=== PATIENT | female | born 1940 | race Caucasian/White ===

== ENCOUNTER 2017-09-04 22:37 | Inpatient (IN) | payer OTHER, MEDICARE ==
[~2017-09-04] VITALS: Ht 167.6 cm; Wt 64.4 kg
--- NOTE | ~2017-09-04 | 2DMMODE ---
[facility] [address] [place] [address] 2 D/M-MODE ECHOCARDIOGRAM Name: SOCORRO RAY Room #: 206-P [facility] [place] [facility]#: [id number] Admission: 09/05/17 Attend Phys: Dolores Aguirre MD Discharge: 09/05/17 Date of : 42 Date of Service: 09/06/17 1052 Report #: [id number] THIS REPORT FOR: //name// APPROVED REPORT Study performed: 09/05/2017 08:13:38 EXAM: Comprehensive 2D, Doppler, and color-flow Echocardiogram Patient Location: Bedside Room #: 206 Status: on-call BSA: 1.73 HR: 69 bpm BP: 128/64 mmHg Rhythm: NSR Other Information Study Quality: Good Indications Syncope, chest pressure, short of breath. 2D Dimensions RVDd: 35.01 mm LVEF(%): 76.34 (>50%) IVSd: 10.90 (7-11mm) LVOT Diam: 19.77 (18-24mm) LVDd: 44.31 mm PWd: 11.30 (7-11mm) Ascending Ao: 29.35 (22-36mm) LVDs: 24.44 (25-40mm) Aortic Root: 30.85 mm Sanders's LVEF: 76.34 % Volumes Left Atrial Volume (Systole) Single Plane 4CH: 47.21 mL Single Plane 2CH: 45.92 mL LA ESV Index: 31.00 mL/m2 Aortic Valve AoV Peak Palmer.: 1.34 m/s AO Peak Gr.: 7.13 mmHg LVOT Max P.45 mmHg LVOT Max V: 0.93 m/s LANG Vmax: 2.13 cm2 Mitral Valve E/A Ratio: 1.2 MV Decel. Time: 181.87 ms [facility] [place] [address] 2 D/M-MODE ECHOCARDIOGRAM Name: SOCORRO RAY Room #: 206-P [facility] [place]R.#: [id number] Admission: 09/05/17 Attend Phys: Dolores Aguirre MD Discharge: 09/05/17 Date of : 42 Date of Service: 09/06/17 1052 Report #: [id number] MV E Max Palmer.: 1.11 m/s MV A Palmer.: 0.90 m/s MV PHT: 52.74 ms IVRT: 59.98 ms Pulmonary Valve PV Peak Palmer.: 0.77 m/s PV Peak Gr.: 2.36 mmHg Pulmonary Vein P Vein S: 0.78 m/s P Vein A: 0.32 m/s P Vein D: 0.37 m/s P Vein A Dur.: 138.4 msec P Vein S/D Ratio: 2.11 Tricuspid Valve TR Peak Palmer.: 2.53 m/s RAP Estimate: 5.00 mmHg TR Peak Gr.: 25.55 mmHg PA Pressure: 31.00 mmHg Left Ventricle The left ventricle is normal size. There is normal LV segmental wall motion. There is normal left ventricular wall thickness. Left ventricular systolic function is normal. LVEF is 55-60%. Moderate diastolic dysfunction is present (pseudonormal filling). Right Ventricle The right ventricle is normal size. The right ventricular systolic function is normal. Atria The left atrium size is normal. The right atrium size is normal. Aortic Valve Aortic valve is trileaflet. Trace aortic regurgitation. There is no aortic valvular stenosis. Mitral Valve Mitral valve leaflets are mildly thickened. There is mild mitral valve prolapse. Mild mitral regurgitation. Eccentric jet; difficult to fully assess. No evidence of mitral valve stenosis. Tricuspid Valve The tricuspid valve is normal in structure. Trace to mild tricuspid regurgitation. Estimated PAP is 30-35mmHg. [place] [address] 2 D/M-MODE ECHOCARDIOGRAM Name: SOCORRO RAY Room #: 206-P [facility] [place] .R.#: [id number] Admission: 09/05/17 Attend Phys: Dolores Aguirre MD Discharge: 09/05/17 Date of : 42 Date of Service: 09/06/17 1052 Report #: [id number] The pulmonary valve is normal in structure. Mild pulmonic regurgitation. Great Vessels The aortic root is normal in size. The ascending aorta is normal in size. IVC is normal in size and collapses >50% with inspiration. Pericardium There is no pericardial effusion. <Conclusion> The left ventricle is normal size. LVEF is 55-60%. Moderate diastolic dysfunction is present (pseudonormal filling). The right ventricle is normal size. The left atrium size is normal. The left atrium size is normal. Aortic valve is trileaflet. Trace aortic regurgitation. Mitral valve leaflets are mildly thickened. There is mild mitral valve prolapse. Mild mitral regurgitation. Eccentric jet; difficult to fully assess. Trace to mild tricuspid regurgitation. Estimated PAP is 30-35mmHg. The aortic root is normal in size. There is no pericardial effusion. <ELECTRONICALLY SIGNED> By: Chepe Manzano MD, FACC 09/06/17 [phone] Chepe Manzano MD, FACC /INF
--- NOTE | ~2017-09-04 | D ---
[facility] [place] [address] DISCHARGE SUMMARY Name: SOCORRO RAY Room #: 206-P [facility] M.R.#: [id number] Admission: 09/05/17 Attend Phys: Dolores Aguirre MD Discharge: 09/05/17 Date of : 42 Report #: [id number] THIS REPORT FOR: //name// CC: Dolores Manzano DATE OF SERVICE: 09/05/2017 HOSPITAL COURSE: The patient is a 76-year-old female, patient of Dr. Aguirre, who does have a history of a heart murmur. She was at the grandson's graduation, subsequently felt warm and had a syncopal event. Brought in by EMS. The strips they thought was reading atrial fibrillation, although I was able to review and I believe these were frequent PACs and sinus rhythm was maintained. She is in sinus rhythm here. She has been having some complaints of intermittent fatigue, although no definite anginal type symptoms. She does not have cardiac history. In any event, she has been ruled out. She is in sinus rhythm. She feels well. She has been under a lot of stress and had been eating and was warm, so I suspect this was more vasovagal. Her echo Doppler is essentially normal except for mitral valve prolapse and mild to moderate MR with mild pulmonary hypertension in the 40 range. The ejection fraction was normal. She takes only hydrochlorothiazide. There is some borderline hypertension and hypercholesterolemia. There have not been any other episodes of syncope prior to this. She was transferred from [facility] to here. She will be discharged on losartan because of the mitral valve prolapse and an attempt to prolong the life of this valve. For borderline hypertension I have added losartan HCT 50/12.5 stopped the 25 mg hydrochlorothiazide. Continue the simvastatin, calcium, vitamin D3, multivitamins and a baby aspirin. I do not have indication for anticoagulation at this point, I do not have documented atrial fibrillation. I am planning to place a 2-week monitor on her on Thursday. Then we will follow up this intermittent fatigue and chest pressure, heaviness issues with a stress echocardiographic exam in the next week or two. I will not make any other changes. She will call with any issues. She will follow up with Dr. Aguirre in addition. DISCHARGE DIAGNOSES: 1. Syncope. 1. Report of paroxysmal atrial fibrillation, although not documented. 2. Hypertension. 3. Hypercholesterolemia. 4. Mitral valve prolapse. 5. I should also note that carotid Doppler showed no plaquing. I believe there were some incidental findings of some thyroid nodules and we will defer that to Dr. Aguirre as an outpatient. Troponins are negative. Chemistry was normal. H and H were 14 and 41. [facility] [address] [place] [address] DISCHARGE SUMMARY Name: FLORSOCORRO Zo Room #: 206-P [facility] M.R.#: [id number] Admission: 09/05/17 Attend Phys: Dolores Aguirre MD Discharge: 09/05/17 Date of : 42 Report #: [id number] Thank you for asking me to assist in the care of this patient. By: [id number] Chepe Manzano MD, FACC /nt
--- NOTE | ~2017-09-04 | EKG ---
[address] [place] [address] ELECTROCARDIOGRAM REPORT Name: RAYSOCORRO Room #: 206-P [facility] IN .R.#: [id number] Admission: 09/05/17 Attend Phys: Dolores Aguirre MD Discharge: 09/05/17 Date of : 42 Report #: [id number] THIS REPORT FOR: //name// [facility] ED Test Date: 2017-09-04 Test Time: 22:47:43 Pat Name: SOCORRO RAY Department: Room: Gender: F [employer] Editor: carmen : 1940 Requested By: Ryann Eldridge Order Number: [id number] MD: Richard Rockwell Measurements Intervals [place] Rate: 75 P: 68 MA: 161 QRS: -45 QRSD: 92 T: 22 QT: 410 QTc: 458 Interpretive Statements Sinus rhythm Atrial premature complex Left anterior fascicular block Abnormal R-wave progression, late transition Left ventricular hypertrophy Compared to ECG 09/14/1999 16:56:25 Atrial premature complex(es) now present Left anterior fascicular block now present Electronically Signed On 09-07-2017 7:48:21 CDT by Richard Rockwell [email or web address] <ELECTRONICALLY SIGNED> By: Richard Rockwell MD, [facility] 09/07/17 0748 2247 Richard Rockwell MD, [facility] /EPI
[~2017-09-04 22:37] MED LIST: CALCIUM 600 +1 EAC1 PO; HYDROCHLOROTH; HYDROCHLOROTHIA25 M1 PO; SIMVASTATIN40 MG PO; THERA-M CAPLET1 EACH PO; TIZANIDINE HCL4 M1 PO; VITAMIN D-32000 UNIT PO
[2017-09-04 22:47] VITALS: BP 164/81
[2017-09-04] MEDS ORDERED: ASPIR 8181 MG PO (23:03)
[2017-09-04 23:07] LABS: ABSOLUTE NEUTROPHILS 6.5 thou/uL (1.4-8.2); BASOPHILS 0.3 % (0.0-2.0); EOSINOPHILS 0.2 % (0.0-3.0); HEMATOCRIT 41.7 % (37.0-47.0); HEMOGLOBIN 14.4 gm/dL (12.0-15.0); LYMPHOCYTES 20.6 % (24.0-44.0); MCH 31.2 pg (26.0-34.0); MCHC 34.5 g/dL (28.0-37.0); MCV 90.7 fL (80.0-100.0); MONOCYTES 7.6 % (1.0-8.0); PLATELET COUNT 175 thou/uL (150-400); POLYS 71.3 % (36.0-66.0); RDW 13.4 % (10.5-14.5); WBC 9.1 thou/uL (4.0-11.0)
[2017-09-04 23:23] LABS: ANION GAP 14 mmol/L (7-16); BUN 22 mg/dL (7-18); CALCIUM 9.4 mg/dL (8.5-10.1); CHLORIDE 94 mmol/L (98-107); CO2 24 mmol/L (21-32); CREATININE 1.1 mg/dL (0.6-1.0); GLUCOSE 103 mg/dL (74-106); POTASSIUM 3.1 mmol/L (3.5-5.1); SODIUM 132 mmol/L (136-145)
[2017-09-04 23:25] LABS: TROPONIN-I < 0.04 ng/mL (<0.06)
[2017-09-05] VITALS: BP 159/92
[2017-09-05 01:00] VITALS: BP 144/84
[2017-09-05 04:49] VITALS: BP 128/64
[2017-09-05 07:15] LABS: CALCIUM 8.9 mg/dL (8.5-10.1); CREATININE 0.9 mg/dL (0.6-1.0); POTASSIUM 3.6 mmol/L (3.5-5.1)
[2017-09-05 07:20] VITALS: BP 145/83
[2017-09-05] MEDS ORDERED: LOSARTAN-HCTZ1 EAC2 PO (09:51)
[2017-09-05 11:19] VITALS: BP 145/83
[2017-09-05 11:24] VITALS: BP 145/83
== END 2017-09-05 12:00 | disposition home or self-care (01) | DRG 312 ==
LOC: ER 22:37 → EROBS 09-05 00:12 → 2N 09-05 01:33
PROVIDERS: Emergency Medicine; Family Medicine
DX: R55 Syncope and collapse (principal); R07.9 Chest pain, unspecified; E87.6 Hypokalemia; I48.0 Paroxysmal atrial fibrillation; I34.0 Nonrheumatic mitral (valve) insufficiency; I27.20 Pulmonary hypertension, unspecified; I10 Essential (primary) hypertension; E78.00 Pure hypercholesterolemia, unspecified; Z79.899 Other long term (current) drug therapy; Z82.49 Family history of ischemic heart disease and other diseases of the circulatory system
CPT/HCPCS: 10081

== ENCOUNTER → 2019-10-31 | Outpatient (CLI) | payer OTHER, MEDICARE ==
[~2019-10-31] MED LIST changes: +ASPIR 8181 MG PO; +LOSARTAN-HCTZ1 EAC2 PO
== END ==
LOC: SJCVCIMAG 09:56
PROVIDERS: ATTEND Internal Medicine Cardiovascular Disease
DX: R94.31 Abnormal electrocardiogram [ECG] [EKG] (principal); I44.4 Left anterior fascicular block; I34.1 Nonrheumatic mitral (valve) prolapse; E78.00 Pure hypercholesterolemia, unspecified; Z79.899 Other long term (current) drug therapy; Z87.891 Personal history of nicotine dependence

== ENCOUNTER → 2020-10-31 | Outpatient (CLI) | payer OTHER | LOC: SJCVCIMAG 08:41 | PROVIDERS: ATTEND Internal Medicine Cardiovascular Disease | DX: R94.31 Abnormal electrocardiogram [ECG] [EKG] (principal); I08.8 Other rheumatic multiple valve diseases; I10 Essential (primary) hypertension; E78.00 Pure hypercholesterolemia, unspecified; Z87.898 Personal history of other specified conditions; Z87.891 Personal history of nicotine dependence; Z72.89 Other problems related to lifestyle; Z79.899 Other long term (current) drug therapy; Z79.82 Long term (current) use of aspirin ==